=== PATIENT | female | born 1985 ===

== ENCOUNTER → 2024-07-21 06:36 | Outpatient (CLI) | payer OTHER ==
[2024-07-21 07:45] LABS: BASO % 0.6 % (0.1-1.2); EOS # 0.24 (0.04-0.54); EOS % 3.3 % (0.7-7.0); HEMOGLOBIN 9.9 g/dL (11.2-15.7); LYMPH # 1.22 (1.18-3.74); MEAN CORPUSCULAR HEMOGLOBIN 19.3 pg (25.6-32.2); MONO # 0.47 (0.24-0.82); MONO % 6.6 % (4.7-12.5); NEUT # 5.18 (1.56-6.13); NEUT % 72.2 % (34.0-71.1); PLATELET COUNT 426 K/uL (163-369); RED BLOOD COUNT 5.12 M/uL (3.93-5.22); RED CELL DISTRIBUTION WIDTH 17.8 % (11.6-14.4)
[2024-07-21 08:40] LABS: % SATURACION 2.8 % (15-50); ALBUMIN 3.7 gm/dL (3.4-5.0); BILIRUBIN TOTAL 0.29 mg/dL (0.3-1.2); CREATININE SERUM 0.67 mg/dL (0.55-1.02); GFR 99.04; GLOBULINA 3.9 G/DL (2.4-3.5); POTASSIUM 4.36 mEq/L (3.5-5.1); T4 FREE 1.12 NG/ML (0.76-1.46); TOTAL PROTEIN 7.6 gm/dL (6.4-8.2); TSH 2.43 uIU/mL (0.358-3.74)
[2024-07-21 08:42] LABS: FERRITIN 2.4 NG/ML (8-252)
[2024-07-21 12:02] LABS: FOLIC ACID 18.73 ng/ml (4.78-20)
[2024-07-23 05:07] LABS: ANTI THYROID PEROXIDASE < 9 IU/mL (0-34); TRANSFERIN 347 mg/dL (192-364)
[2024-07-23 13:08] LABS: hgb f 0 % (0.0-2.0); hgb s 0 % (0.0)
[2024-07-23 15:12] LABS: ERYTHROPOIETIN 50.8 mIU/mL (2.6-18.5)
[2024-07-25 15:08] LABS: PARIETAL CELL ANTIBODIES 1.5 Units (0.0-20.0)
== END | disposition home or self-care (01) ==
LOC: LAB 06:36
PROVIDERS: ATTEND Internal Medicine Hematology & Oncology
DX: E11.8 Type 2 diabetes mellitus with unspecified complications (principal); D50.8 Other iron deficiency anemias; N92.4 Excessive bleeding in the premenopausal period; E06.3 Autoimmune thyroiditis; E03.8 Other specified hypothyroidism; D63.1 Anemia in chronic kidney disease; D51.0 Vitamin B12 deficiency anemia due to intrinsic factor deficiency; D51.1 Vitamin B12 deficiency anemia due to selective vitamin B12 malabsorption with proteinuria; D55.0 Anemia due to glucose-6-phosphate dehydrogenase [G6PD] deficiency; D63.8 Anemia in other chronic diseases classified elsewhere; K76.89 Other specified diseases of liver; R74.02 Elevation of levels of lactic acid dehydrogenase [LDH]; I10 Essential (primary) hypertension; R79.9 Abnormal finding of blood chemistry, unspecified